=== PATIENT | female | born 1935 | race African-American/Black ===

== ENCOUNTER 2017-02-04 13:22 | Emergency (ER) | payer OTHER ==
[~2017-02-04] VITALS: Ht 154.9 cm; Wt 61.5 kg
[~2017-02-04 13:22] MED LIST: ALLO100T PO; COLC0.6T66 PO; DICL75TA5 PO; DILT120C2 PO
[2017-02-04 14:14] VITALS: BP 155/80
== END 2017-02-04 16:36 | disposition home or self-care (01) ==
LOC: ER 13:45
DX: H53.8 Other visual disturbances (principal); Z79.899 Other long term (current) drug therapy; I10 Essential (primary) hypertension; M10.9 Gout, unspecified; R51 Headache
CPT/HCPCS: 70450; 99284

== ENCOUNTER → 2018-05-20 | Outpatient (CLI) | payer MEDICARE ==
[~2018-05-20] MED LIST changes: +DILT-26 PO; -DILT120C2 PO
== END | disposition home or self-care (01) ==
LOC: MRI 12:07
PROVIDERS: ATTEND Internal Medicine Critical Care Medicine
DX: M19.042 Primary osteoarthritis, left hand (principal); M25.451 Effusion, right hip; D25.9 Leiomyoma of uterus, unspecified
CPT/HCPCS: 72195; 73130

== ENCOUNTER 2019-02-20 12:30 | Inpatient (IN) | payer OTHER, MEDICARE ==
[~2019-02-20] VITALS: Ht 154.9 cm; Wt 61.7 kg
[2019-02-20] MEDS ORDERED: SODIUM CHLORIDE 0.9% 1,000 ML IV ONE (17:21)
[2019-02-20] MEDS ORDERED: MORPHINE SULFATE 2 MG/ML CPJ (NOT FOR IM USE) IV ONE (17:30)
[2019-02-20 18:12] LABS: BASOPHILS % 0.9 % (0.0-2.0); EOSINOPHILS % 0.5 % (0.0-5.0); HEMATOCRIT. 30.8 % (36.0-48.0); LYMPHOCYTES % 11.7 % (20.0-50.0); MEAN CORPUSCULAR VOLUME 89.3 fL (81.0-99.0); MEAN PLATELET VOLUME 7.8 fl (7.4-10.4); MONOCYTES % 8.9 % (2.0-8.0); PLATELET 435 x1000/uL (130-400); RED BLOOD CELL COUNT 3.45 mill/uL (4.2-5.4); RED CELL DISTRIBUTION WIDTH 14.8 % (11.6-14.6)
[2019-02-20 18:17] LABS: CHLORIDE 109 mEq/L (98-107)
[2019-02-20 18:18] LABS: PROTHROMBIN TIME 10.2 sec (9.6-11.0)
[2019-02-20] MEDS ORDERED: LIDOCAINE 1%/EPI 1:100,000 10 ML VIAL IJ ONE (18:45)
[2019-02-20] MEDS ORDERED: LIDOCAINE HCL/EPINEPHRINE 1%-EPI 1:100,000 20 ML VIAL INFIL NR (19:15)
[2019-02-20] MEDS ORDERED: VANCOMYCIN 1 G PREMIX 200 ML IV ONE (19:15)
[2019-02-20] MEDS ORDERED: CEFTRIAXONE 1 G PREMIX 50 ML IV ONE (19:15)
[2019-02-20] MEDS ORDERED: DOCUSATE SODIUM 100MG CAPSULE PO PRN (19:45)
[2019-02-20] MEDS ORDERED: DIPHENHYDRAMINE 50MG/ML VIAL IV PRN (19:45)
[2019-02-20] MEDS ORDERED: ACETAMINOPHEN 325MG TABLET PO PRN (19:45)
[2019-02-20] MEDS ORDERED: MAGNESIUM/ALUMINUM HYDROXIDE/SIMETHICONE 30ML UDC PO PRN (19:45)
[2019-02-20] MEDS ORDERED: IPRATROPIUM/ALBUTEROL 0.5-3(2.5)MG/3ML NEB INH PRN (19:45)
[2019-02-20] MEDS ORDERED: PIPERACILLIN/TAZ 3.375G PREMIX 50 ML IV SCH (19:45)
[2019-02-20] MEDS ORDERED: CLONIDINE 0.1MG TABLET PO PRN (19:45)
[2019-02-20] MEDS ORDERED: ONDANSETRON HCL 4MG/2ML INJ IV PRN (19:45)
[2019-02-20] MEDS ORDERED: GUAIFENESIN 200MG/10ML SUGAR FREE UDC PO PRN (19:45)
[2019-02-20 20:16] LABS: PHOSPHORUS 4.8 mg/dL (2.5-4.9)
[2019-02-20 23:40] VITALS: BP 145/68
[2019-02-20 23:46] LABS: CLARITY URINE CLEAR (CLEAR); COLOR URINE YELLOW (YELLOW); KETONES URINE NEGATIVE (NEGATIVE); LEUKOCYTE ESTERASE URINE NEGATIVE (NEGATIVE); NITRITE URINE NEGATIVE (NEGATIVE); OCCULT BLOOD URINE 1+ (NEGATIVE); PH URINE 6.5 (4.5-8.0); PROTEIN URINE 2+ (NEGATIVE); SPECIFIC GRAVITY URINE 1.013 (1.005-1.030); UROBILINOGEN URINE 0.2 E.U./dL (0.2-1.0)
[2019-02-21] VITALS: BP 145/68
[2019-02-21] MEDS ORDERED: DEXTROSE 50% WATER 50ML SYRINGE IV NR
[2019-02-21] MEDS: MORPHINE SULFATE 2 MG/ML CPJ (NOT FOR IM USE) IV PRN (00:27)
[2019-02-21] MEDS ORDERED: DEXTROSE 50% WATER 50ML SYRINGE IV PRN ×2 (00:45→12:45)
[2019-02-21] MEDS ORDERED: ACET-2708 PO (00:47)
[2019-02-21] MEDS ORDERED: OLOP5DRO14 EACHEYE (00:47)
[2019-02-21] MEDS ORDERED: DORZ10DR12 EACHEYE (00:47)
[2019-02-21] MEDS ORDERED: XALAO EACHEYE (00:47)
[2019-02-21] MEDS ORDERED: CALC0.253 PO (00:47)
[2019-02-21] MEDS ORDERED: AMLO5TAB88 PO (00:47)
[2019-02-21] MEDS ORDERED: INSULIN REGULAR (HUMULIN R) 300UNITS/3ML SUBCUT NR (01:00)
[2019-02-21] MEDS ORDERED: SODIUM POLYSTYRENE SULFONATE 15 G/60 ML BOT PO NR (01:00)
[2019-02-21 01:07] LABS: CREATINE KINASE MB FRACTION 1.3 ng/mL (0.5-3.6)
[2019-02-21 04:00] VITALS: BP 130/68
[2019-02-21] MEDS ORDERED: PIPERACILLIN/TAZ 2.25G PREMIX 50 ML IV SCH (06:00)
[2019-02-21 07:15] LABS: CHLORIDE 113 mEq/L (98-107)
[2019-02-21 07:25] LABS: BASOPHILS % 0.3 % (0.0-2.0); EOSINOPHILS % 0.8 % (0.0-5.0); HEMATOCRIT. 28.7 % (36.0-48.0); HEMOGLOBIN. 9.3 g/dL (12.0-16.0); MEAN CORPUSCULAR HEMOGLOBIN 28.7 pg (28.0-32.0); MEAN CORPUSCULAR VOLUME 88.8 fL (81.0-99.0); MEAN PLATELET VOLUME 7.8 fl (7.4-10.4); MONOCYTES % 10.8 % (2.0-8.0); NEUTROPHILS % 78.1 % (40.0-76.0); PLATELET 456 x1000/uL (130-400); RED BLOOD CELL COUNT 3.24 mill/uL (4.2-5.4); RED CELL DISTRIBUTION WIDTH 14.4 % (11.6-14.6)
[2019-02-21 07:33] LABS: CREATINE KINASE 141 IU/L (26-192); LDL CHOLESTEROL 93 mg/dL (5-100)
[2019-02-21 07:36] LABS: HDL CHOLESTEROL 55 mg/dL (40-59)
[2019-02-21 07:37] LABS: CREATINE KINASE MB FRACTION 1.3 ng/mL (0.5-3.6)
[2019-02-21] MEDS ORDERED: BLOOD SUGAR DIAGNOSTIC STRIP TEST SCH (07:40)
[2019-02-21 08:00] VITALS: BP 147/70
[2019-02-21] MEDS ORDERED: INSULIN LISPRO 100 UNITS/ML SUBCUT SCH (08:10)
[2019-02-21] MEDS: DORZOLAM/TIMOLOL 2.23/0.68% OPHTH DROPS 10ML EACHEYE SCH ×2 (08:55→17:37)
[2019-02-21] MEDS: AMLODIPINE 5MG TABLET PO SCH (08:55)
[2019-02-21 12:00] VITALS: BP 128/67
[2019-02-21] MEDS: COLCHICINE 0.6MG TABLET PO SCH (13:03)
[2019-02-21] MEDS: INSULIN LISPRO 100 UNITS/ML SUBCUT SCH ×3 (13:04→22:11)
[2019-02-21] MEDS ORDERED: ALLOPURINOL 300 MG TABLET PO SCH (14:00)
[2019-02-21] MEDS ORDERED: VANCOMYCIN 500 MG PREMIX 100 ML IV NR (14:00)
[2019-02-21] MEDS ORDERED: FLUCONAZOLE 150MG TABLET PO SCH (14:00)
[2019-02-21] MEDS: CALCITRIOL 0.25MCG CAPSULE PO SCH (15:16)
[2019-02-21 16:00] VITALS: BP 134/62
[2019-02-21] MEDS: BLOOD SUGAR DIAGNOSTIC STRIP TEST SCH ×2 (17:35→21:53)
[2019-02-21] MEDS: HYDROCODONE/ACETAMINOPHEN 5/325MG TABLET PO PRN (17:37)
[2019-02-21 20:00] VITALS: BP 119/57
[2019-02-21] MEDS: LATANOPROST 0.005% OPHTH DROPS 2.5ML EACHEYE SCH (21:53)
[2019-02-21] MEDS: FAMOTIDINE 20MG TABLET PO SCH (21:53)
[2019-02-22] VITALS: BP_SYST 108; BP_DIAS 52; BP_DIAS 56
[2019-02-22 04:00] VITALS: BP 128/68
[2019-02-22] MEDS: HYDROCODONE/ACETAMINOPHEN 5/325MG TABLET PO PRN (06:13)
[2019-02-22] MEDS: BLOOD SUGAR DIAGNOSTIC STRIP TEST SCH (06:18)
[2019-02-22] MEDS: INSULIN LISPRO 100 UNITS/ML SUBCUT SCH (06:18)
[2019-02-22 08:00] VITALS: BP 121/80
[2019-02-22] MEDS: AMLODIPINE 5MG TABLET PO SCH (09:12)
[2019-02-22] MEDS: CALCITRIOL 0.25MCG CAPSULE PO SCH (09:12)
[2019-02-22] MEDS: DORZOLAM/TIMOLOL 2.23/0.68% OPHTH DROPS 10ML EACHEYE SCH ×2 (09:13→18:15)
[2019-02-22] MEDS: LIDOCAINE 5% PATCH TOP SCH (09:56)
[2019-02-22] MEDS: COLCHICINE 0.6MG TABLET PO SCH (10:07)
[2019-02-22 12:00] VITALS: BP 135/67
[2019-02-22 16:00] VITALS: BP 129/69
[2019-02-22 20:00] VITALS: BP 149/67
[2019-02-22] MEDS: FAMOTIDINE 20MG TABLET PO SCH (20:41)
[2019-02-22] MEDS: LATANOPROST 0.005% OPHTH DROPS 2.5ML EACHEYE SCH (20:41)
[2019-02-22] MEDS: MORPHINE SULFATE 2 MG/ML CPJ (NOT FOR IM USE) IV PRN (20:42)
[2019-02-23] VITALS: BP 123/70
[2019-02-23 04:00] VITALS: BP 129/65
[2019-02-23 07:00] LABS: BASOPHILS % 0.6 % (0.0-2.0); EOSINOPHILS % 1.1 % (0.0-5.0); HEMATOCRIT. 27.2 % (36.0-48.0); HEMOGLOBIN. 8.8 g/dL (12.0-16.0); LYMPHOCYTES % 11.7 % (20.0-50.0); MEAN CORPUSCULAR HEMOGLOBIN 28.6 pg (28.0-32.0); MEAN CORPUSCULAR VOLUME 88.4 fL (81.0-99.0); MEAN PLATELET VOLUME 7.5 fl (7.4-10.4); MONOCYTES % 9.5 % (2.0-8.0); NEUTROPHILS % 77.1 % (40.0-76.0); PLATELET 431 x1000/uL (130-400); RED BLOOD CELL COUNT 3.08 mill/uL (4.2-5.4); RED CELL DISTRIBUTION WIDTH 14.3 % (11.6-14.6)
[2019-02-23 07:13] LABS: PHOSPHORUS 4.7 mg/dL (2.5-4.9)
[2019-02-23 08:00] VITALS: BP 136/71
[2019-02-23] MEDS ORDERED: TRIAMCINOLONE ACETONIDE 40MG/ML 1ML VIAL IM NR (08:00)
[2019-02-23] MEDS ORDERED: ETHYL CHLORIDE CAN TOP NR (08:00)
[2019-02-23] MEDS ORDERED: BUPIVACAINE HCL 0.25% (2.5MG/ML) 50ML IR NR (08:00)
[2019-02-23] MEDS ORDERED: LIDOCAINE HCL 1% 20ML VIAL (Pyxis) INJ INFIL NR (08:00)
[2019-02-23] MEDS: COLCHICINE 0.6MG TABLET PO SCH (08:38)
[2019-02-23] MEDS: CALCITRIOL 0.25MCG CAPSULE PO SCH (08:39)
[2019-02-23] MEDS: AMLODIPINE 5MG TABLET PO SCH (08:39)
[2019-02-23] MEDS: DORZOLAM/TIMOLOL 2.23/0.68% OPHTH DROPS 10ML EACHEYE SCH ×2 (08:40→17:00)
[2019-02-23] MEDS: LIDOCAINE 5% PATCH TOP SCH (08:40)
[2019-02-23 09:15] LABS: TOTAL IRON BINDING CAPACITY 240 ug/dL (250-450)
[2019-02-23 12:00] VITALS: BP 141/62
[2019-02-23 16:00] VITALS: BP 125/63
[2019-02-23 20:00] VITALS: BP 141/63
[2019-02-23] MEDS ORDERED: POLYETHYLENE GLYCOL 3350 (17GM) 1 DOSE PACK PO SCH (21:00)
[2019-02-23] MEDS: LATANOPROST 0.005% OPHTH DROPS 2.5ML EACHEYE SCH (21:21)
[2019-02-23] MEDS: LACTULOSE 20G/30ML UDC PO SCH (21:22)
[2019-02-23] MEDS: DOCUSATE SODIUM 100MG CAPSULE PO SCH (21:22)
[2019-02-23] MEDS: FAMOTIDINE 20MG TABLET PO SCH (21:23)
[2019-02-24 00:39] VITALS: BP 128/71
[2019-02-24 04:00] VITALS: BP_SYST 133
[2019-02-24 06:04] LABS: BASOPHILS % 0.5 % (0.0-2.0); EOSINOPHILS % 0.2 % (0.0-5.0); HEMOGLOBIN. 8.9 g/dL (12.0-16.0); LYMPHOCYTES % 10.2 % (20.0-50.0); MEAN CORPUSCULAR HEMOGLOBIN 28.4 pg (28.0-32.0); MEAN CORPUSCULAR VOLUME 89.9 fL (81.0-99.0); MEAN PLATELET VOLUME 7.4 fl (7.4-10.4); MONOCYTES % 6.8 % (2.0-8.0); NEUTROPHILS % 82.3 % (40.0-76.0); PLATELET 446 x1000/uL (130-400); RED BLOOD CELL COUNT 3.12 mill/uL (4.2-5.4); RED CELL DISTRIBUTION WIDTH 14.3 % (11.6-14.6)
[2019-02-24 08:00] VITALS: BP 163/58
[2019-02-24] MEDS: CALCITRIOL 0.25MCG CAPSULE PO SCH (08:58)
[2019-02-24] MEDS: FAMOTIDINE 20MG TABLET PO SCH (08:58)
[2019-02-24] MEDS: AMLODIPINE 5MG TABLET PO SCH (08:58)
[2019-02-24] MEDS: LACTULOSE 20G/30ML UDC PO SCH (08:59)
[2019-02-24] MEDS: LIDOCAINE 5% PATCH TOP SCH (08:59)
[2019-02-24] MEDS: DOCUSATE SODIUM 100MG CAPSULE PO SCH (09:00)
[2019-02-24] MEDS: COLCHICINE 0.6MG TABLET PO SCH (09:01)
[2019-02-24] MEDS: DORZOLAM/TIMOLOL 2.23/0.68% OPHTH DROPS 10ML EACHEYE SCH (09:05)
[2019-02-24] MEDS ORDERED: IRON SUCROSE COMPLEX 100 MG/5 ML ML IV SCH (09:30)
[2019-02-24] MEDS ORDERED: SODIUM BICARBONATE 650 MG TABLET PO SCH (09:30)
[2019-02-24 12:00] VITALS: BP 105/53
[2019-02-24 15:10] VITALS: BP 105/53
[2019-02-24] MEDS ORDERED: AMLODIPINE 5MG TABLET PO SCH (21:00)
== END 2019-02-24 16:03 | DRG 554 ==
LOC: ER 12:30 → 7WST 19:17 → EDBEDREQTM 19:34 → EDBEDREQ 19:34 → ENRESERV 20:45
PROVIDERS: ADMIT Internal Medicine; ATTEND Internal Medicine
PROC: 0S9D3ZZ Drainage of Left Knee Joint, Percutaneous Approach (ICD-10-PCS; principal; 2019-02-20)
PROC: 3E0U33Z Introduction of Anti-inflammatory into Joints, Percutaneous Approach (ICD-10-PCS; 2019-02-23)
PROC: 3E0U3BZ Introduction of Anesthetic Agent into Joints, Percutaneous Approach (ICD-10-PCS; 2019-02-23)
DX: M17.12 Unilateral primary osteoarthritis, left knee (principal); N17.9 Acute kidney failure, unspecified; R65.10 Systemic inflammatory response syndrome (SIRS) of non-infectious origin without acute organ dysfunction; I12.0 Hypertensive chronic kidney disease with stage 5 chronic kidney disease or end stage renal disease; N18.5 Chronic kidney disease, stage 5; E87.5 Hyperkalemia; E16.2 Hypoglycemia, unspecified; M10.9 Gout, unspecified; D63.1 Anemia in chronic kidney disease; E78.00 Pure hypercholesterolemia, unspecified; E78.5 Hyperlipidemia, unspecified; G62.9 Polyneuropathy, unspecified; G89.29 Other chronic pain; H40.9 Unspecified glaucoma; H54.7 Unspecified visual loss; K21.9 Gastro-esophageal reflux disease without esophagitis; M48.02 Spinal stenosis, cervical region; M71.22 Synovial cyst of popliteal space [Baker], left knee; M48.061 Spinal stenosis, lumbar region without neurogenic claudication; M50.321 Other cervical disc degeneration at C4-C5 level; M51.36 Other intervertebral disc degeneration, lumbar region; M85.80 Other specified disorders of bone density and structure, unspecified site; Z82.3 Family history of stroke; Z82.49 Family history of ischemic heart disease and other diseases of the circulatory system; Z86.010 Personal history of colon polyps; Z98.42 Cataract extraction status, left eye; Z79.899 Other long term (current) drug therapy
CPT/HCPCS: 36415; 70551; 71045; 72141; 72146; 72148; 72190; 73562; 80048; 80061; 82550; 82553; 82962; 83036; 83540; 83550; 83605; 83735; 83880; 84100; 84443; 84550; 85651; 86140; 89060; 93005; 93970; 96374; 97110; 97162; 97166; 97530; 97535; 99285; J0696; J1815; J2270; J2543; J3301; J3370; J3490; J7030; J7050

== ENCOUNTER 2019-02-24 15:55 | Inpatient (IN) | payer MEDICARE ==
[~2019-02-24] VITALS: Ht 154.9 cm; Wt 61.7 kg
[~2019-02-24 15:55] MED LIST changes: +ACET-2708 PO; +AMLO5TAB88 PO; +CALC0.253 PO; -COLC0.6T66 PO; -DICL75TA5 PO; -DILT-26 PO; +DORZ10DR12 EACHEYE; +OLOP5DRO14 EACHEYE; +XALAO EACHEYE
[2019-02-24 16:00] VITALS: BP 114/69
[2019-02-24] MEDS ORDERED: MORPHINE SULFATE 2 MG/ML CPJ (NOT FOR IM USE) IV PRN (17:00)
[2019-02-24] MEDS ORDERED: DIPHENHYDRAMINE 25MG CAPSULE PO PRN (17:00)
[2019-02-24] MEDS ORDERED: MAGNESIUM/ALUMINUM HYDROXIDE/SIMETHICONE 30ML UDC PO PRN (17:00)
[2019-02-24] MEDS ORDERED: GUAIFENESIN 200MG/10ML SUGAR FREE UDC PO PRN (17:00)
[2019-02-24] MEDS ORDERED: CLONIDINE 0.1MG TABLET PO PRN (17:00)
[2019-02-24] MEDS ORDERED: ACETAMINOPHEN 325MG TABLET PO PRN (17:00)
[2019-02-24] MEDS ORDERED: IPRATROPIUM/ALBUTEROL 0.5-3(2.5)MG/3ML NEB HHN PRN (17:00)
[2019-02-24] MEDS: DOCUSATE SODIUM 100MG CAPSULE PO SCH (17:00)
[2019-02-24 20:00] VITALS: BP 117/56
[2019-02-24] MEDS: POLYETHYLENE GLYCOL 3350 (17GM) 1 DOSE PACK PO SCH (21:00)
[2019-02-24] MEDS: AMLODIPINE 5MG TABLET PO SCH (21:05)
[2019-02-24] MEDS: DORZOLAM/TIMOLOL 2.23/0.68% OPHTH DROPS 10ML EACHEYE SCH (21:06)
[2019-02-24] MEDS: LATANOPROST 0.005% OPHTH DROPS 2.5ML EACHEYE SCH (21:48)
[2019-02-25 06:49] LABS: CHLORIDE 108 mEq/L (98-107)
[2019-02-25 06:54] LABS: BASOPHILS % 0.4 % (0.0-2.0); EOSINOPHILS % 1.7 % (0.0-5.0); HEMOGLOBIN. 8.9 g/dL (12.0-16.0); LYMPHOCYTES % 14.8 % (20.0-50.0); MEAN CORPUSCULAR HEMOGLOBIN 28.1 pg (28.0-32.0); MEAN CORPUSCULAR VOLUME 88.6 fL (81.0-99.0); MEAN PLATELET VOLUME 7.6 fl (7.4-10.4); MONOCYTES % 7.6 % (2.0-8.0); NEUTROPHILS % 75.5 % (40.0-76.0); PLATELET 487 x1000/uL (130-400); RED BLOOD CELL COUNT 3.16 mill/uL (4.2-5.4); RED CELL DISTRIBUTION WIDTH 14.5 % (11.6-14.6)
[2019-02-25 08:12] VITALS: BP 121/61
[2019-02-25] MEDS: AMLODIPINE 5MG TABLET PO SCH ×2 (09:00→20:36)
[2019-02-25] MEDS: DOCUSATE SODIUM 100MG CAPSULE PO SCH ×2 (10:12→17:43)
[2019-02-25] MEDS: CALCITRIOL 0.25MCG CAPSULE PO SCH (10:12)
[2019-02-25] MEDS: COLCHICINE 0.6MG TABLET PO SCH (10:12)
[2019-02-25] MEDS: SODIUM BICARBONATE 650 MG TABLET PO SCH (10:13)
[2019-02-25] MEDS: LIDOCAINE 5% PATCH TOP SCH (10:13)
[2019-02-25] MEDS: DORZOLAM/TIMOLOL 2.23/0.68% OPHTH DROPS 10ML EACHEYE SCH ×2 (10:15→17:44)
[2019-02-25] MEDS: HYDROCODONE/ACETAMINOPHEN 5/325MG TABLET PO PRN (11:23)
[2019-02-25 19:49] LABS: CLARITY URINE CLEAR (CLEAR); COLOR URINE YELLOW (YELLOW); KETONES URINE NEGATIVE (NEGATIVE); LEUKOCYTE ESTERASE URINE NEGATIVE (NEGATIVE); NITRITE URINE NEGATIVE (NEGATIVE); OCCULT BLOOD URINE TRACE (NEGATIVE); PH URINE 5.5 (4.5-8.0); PROTEIN URINE 1+ (NEGATIVE); SPECIFIC GRAVITY URINE 1.014 (1.005-1.030); UROBILINOGEN URINE 0.2 E.U./dL (0.2-1.0)
[2019-02-25 20:00] VITALS: BP 132/67
[2019-02-25] MEDS: POLYETHYLENE GLYCOL 3350 (17GM) 1 DOSE PACK PO SCH (20:36)
[2019-02-25] MEDS: FAMOTIDINE 20MG TABLET PO SCH (20:36)
[2019-02-25] MEDS: LATANOPROST 0.005% OPHTH DROPS 2.5ML EACHEYE SCH (20:37)
[2019-02-26 06:49] LABS: BASOPHILS % 0.7 % (0.0-2.0); EOSINOPHILS % 2.4 % (0.0-5.0); HEMATOCRIT. 28.5 % (36.0-48.0); HEMOGLOBIN. 9.2 g/dL (12.0-16.0); LYMPHOCYTES % 16.7 % (20.0-50.0); MEAN CORPUSCULAR HEMOGLOBIN 28.7 pg (28.0-32.0); MEAN CORPUSCULAR VOLUME 88.7 fL (81.0-99.0); MEAN PLATELET VOLUME 7.7 fl (7.4-10.4); MONOCYTES % 8.5 % (2.0-8.0); NEUTROPHILS % 71.7 % (40.0-76.0); PLATELET 519 x1000/uL (130-400); RED BLOOD CELL COUNT 3.21 mill/uL (4.2-5.4); RED CELL DISTRIBUTION WIDTH 14.5 % (11.6-14.6)
[2019-02-26 07:27] LABS: PHOSPHORUS 4.9 mg/dL (2.5-4.9)
[2019-02-26 07:49] VITALS: BP 115/54
[2019-02-26] MEDS ORDERED: LACTULOSE 20G/30ML UDC PO SCH ×2 (09:00→14:00)
[2019-02-26] MEDS: SODIUM BICARBONATE 650 MG TABLET PO SCH (09:49)
[2019-02-26] MEDS: DOCUSATE SODIUM 100MG CAPSULE PO SCH ×2 (09:49→16:43)
[2019-02-26] MEDS: AMLODIPINE 5MG TABLET PO SCH ×2 (09:49→22:05)
[2019-02-26] MEDS: CALCITRIOL 0.25MCG CAPSULE PO SCH (09:49)
[2019-02-26] MEDS: COLCHICINE 0.6MG TABLET PO SCH (09:49)
[2019-02-26] MEDS: DORZOLAM/TIMOLOL 2.23/0.68% OPHTH DROPS 10ML EACHEYE SCH ×2 (10:03→16:44)
[2019-02-26] MEDS: LIDOCAINE 5% PATCH TOP SCH (10:03)
[2019-02-26] MEDS: HEPARIN 5000 UNITS/ML VIAL SUBCUT SCH ×2 (10:49→21:59)
[2019-02-26 11:08] LABS: FOLIC ACID (FOLATE) SERUM 10.5 ng/mL (>5.38)
[2019-02-26 20:00] VITALS: BP_SYST 139; BP_SYST 149; BP_DIAS 63; BP_DIAS 79
[2019-02-26] MEDS: FAMOTIDINE 20MG TABLET PO SCH (21:59)
[2019-02-26] MEDS: POLYETHYLENE GLYCOL 3350 (17GM) 1 DOSE PACK PO SCH (22:00)
[2019-02-26] MEDS: LATANOPROST 0.005% OPHTH DROPS 2.5ML EACHEYE SCH (22:05)
[2019-02-27] MEDS: DORZOLAM/TIMOLOL 2.23/0.68% OPHTH DROPS 10ML EACHEYE SCH ×2 (08:19→17:28)
[2019-02-27] MEDS: COLCHICINE 0.6MG TABLET PO SCH (08:19)
[2019-02-27] MEDS: CALCITRIOL 0.25MCG CAPSULE PO SCH (08:19)
[2019-02-27] MEDS: SODIUM BICARBONATE 650 MG TABLET PO SCH (08:19)
[2019-02-27] MEDS: AMLODIPINE 5MG TABLET PO SCH ×2 (08:20→21:55)
[2019-02-27] MEDS: DOCUSATE SODIUM 100MG CAPSULE PO SCH ×2 (08:20→17:28)
[2019-02-27] MEDS: HEPARIN 5000 UNITS/ML VIAL SUBCUT SCH ×2 (08:21→21:56)
[2019-02-27] MEDS: LIDOCAINE 5% PATCH TOP SCH (08:22)
[2019-02-27 08:32] VITALS: BP 126/58
[2019-02-27] MEDS: HYDROCODONE/ACETAMINOPHEN 5/325MG TABLET PO PRN (10:18)
[2019-02-27] MEDS ORDERED: LEVOFLOXACIN 500MG TABLET PO SCH (11:00)
[2019-02-27] MEDS: CYANOCOBALAMIN 1000MCG/ML VIAL IM SCH (11:50)
[2019-02-27] MEDS: ONDANSETRON 4MG ODT PO PRN (15:53)
[2019-02-27 20:00] VITALS: BP 138/60
[2019-02-27] MEDS: POLYETHYLENE GLYCOL 3350 (17GM) 1 DOSE PACK PO SCH (21:00)
[2019-02-27] MEDS: LATANOPROST 0.005% OPHTH DROPS 2.5ML EACHEYE SCH (21:54)
[2019-02-27] MEDS: FAMOTIDINE 20MG TABLET PO SCH (21:55)
[2019-02-28 06:29] LABS: BASOPHILS % 0.8 % (0.0-2.0); EOSINOPHILS % 0.7 % (0.0-5.0); HEMATOCRIT. 27.3 % (36.0-48.0); HEMOGLOBIN. 8.9 g/dL (12.0-16.0); LYMPHOCYTES % 17.8 % (20.0-50.0); MEAN CORPUSCULAR HEMOGLOBIN 28.6 pg (28.0-32.0); MEAN CORPUSCULAR VOLUME 88.1 fL (81.0-99.0); MEAN PLATELET VOLUME 7.8 fl (7.4-10.4); MONOCYTES % 8.5 % (2.0-8.0); NEUTROPHILS % 72.2 % (40.0-76.0); PLATELET 484 x1000/uL (130-400); RED CELL DISTRIBUTION WIDTH 14.4 % (11.6-14.6)
[2019-02-28 08:00] VITALS: BP 136/71
[2019-02-28] MEDS: SODIUM BICARBONATE 650 MG TABLET PO SCH ×2 (08:54→16:31)
[2019-02-28] MEDS: COLCHICINE 0.6MG TABLET PO SCH (08:54)
[2019-02-28] MEDS: CALCITRIOL 0.25MCG CAPSULE PO SCH (08:55)
[2019-02-28] MEDS: HEPARIN 5000 UNITS/ML VIAL SUBCUT SCH ×2 (08:55→20:45)
[2019-02-28] MEDS: CYANOCOBALAMIN 1000MCG/ML VIAL IM SCH (08:55)
[2019-02-28] MEDS: DOCUSATE SODIUM 100MG CAPSULE PO SCH ×2 (08:56→16:31)
[2019-02-28] MEDS: DORZOLAM/TIMOLOL 2.23/0.68% OPHTH DROPS 10ML EACHEYE SCH ×2 (08:56→16:31)
[2019-02-28] MEDS: AMLODIPINE 5MG TABLET PO SCH ×2 (08:56→20:37)
[2019-02-28] MEDS: LIDOCAINE 5% PATCH TOP SCH (08:57)
[2019-02-28] MEDS: HYDROCODONE/ACETAMINOPHEN 5/325MG TABLET PO PRN (10:20)
[2019-02-28] MEDS: ONDANSETRON 4MG ODT PO PRN (15:15)
[2019-02-28 20:00] VITALS: BP 124/64
[2019-02-28] MEDS: POLYETHYLENE GLYCOL 3350 (17GM) 1 DOSE PACK PO SCH (20:37)
[2019-02-28] MEDS: LATANOPROST 0.005% OPHTH DROPS 2.5ML EACHEYE SCH (20:37)
[2019-02-28] MEDS: FAMOTIDINE 20MG TABLET PO SCH (20:37)
[2019-02-28 20:48] VITALS: BP 124/64
[2019-02-28] MEDS: IRON SUCROSE COMPLEX 200 MG in SODIUM CHLORIDE 0.9% 100 ML IV SCH (23:31)
[2019-03-01] MEDS: HYDROCODONE/ACETAMINOPHEN 5/325MG TABLET PO PRN (06:46)
[2019-03-01 07:08] LABS: HEMATOCRIT. 29.1 % (36.0-48.0); HEMOGLOBIN. 9.6 g/dL (12.0-16.0); MEAN CORPUSCULAR HEMOGLOBIN 29.2 pg (28.0-32.0); MEAN CORPUSCULAR VOLUME 88.9 fL (81.0-99.0); MEAN PLATELET VOLUME 7.9 fl (7.4-10.4); PLATELET 507 x1000/uL (130-400); RED BLOOD CELL COUNT 3.28 mill/uL (4.2-5.4); RED CELL DISTRIBUTION WIDTH 14.7 % (11.6-14.6)
[2019-03-01 08:17] VITALS: BP 134/71
[2019-03-01] MEDS: SODIUM BICARBONATE 650 MG TABLET PO SCH ×2 (09:48→17:35)
[2019-03-01] MEDS: AMLODIPINE 5MG TABLET PO SCH ×2 (09:48→20:32)
[2019-03-01] MEDS: COLCHICINE 0.6MG TABLET PO SCH (09:48)
[2019-03-01] MEDS: DOCUSATE SODIUM 100MG CAPSULE PO SCH ×2 (09:48→17:00)
[2019-03-01] MEDS: ALLOPURINOL 100 MG TABLET PO SCH (09:49)
[2019-03-01] MEDS: DORZOLAM/TIMOLOL 2.23/0.68% OPHTH DROPS 10ML EACHEYE SCH ×2 (09:49→17:35)
[2019-03-01] MEDS: CALCITRIOL 0.25MCG CAPSULE PO SCH (09:49)
[2019-03-01] MEDS: LIDOCAINE 5% PATCH TOP SCH (09:54)
[2019-03-01] MEDS: HEPARIN 5000 UNITS/ML VIAL SUBCUT SCH ×2 (09:55→20:32)
[2019-03-01] MEDS: ONDANSETRON 4MG ODT PO PRN (09:57)
[2019-03-01] MEDS ORDERED: MAGNESIUM CITRATE 300ML SOLUTION PO NR (10:00)
[2019-03-01] MEDS: CYANOCOBALAMIN 1000MCG/ML VIAL IM SCH (10:06)
[2019-03-01] MEDS ORDERED: LEVOFLOXACIN 250MG TABLET PO SCH ×3 (11:00)
[2019-03-01 16:32] LABS: PLATELET ESTIMATE INCREASED
[2019-03-01 20:00] VITALS: BP 114/51
[2019-03-01] MEDS: IRON SUCROSE COMPLEX 200 MG in SODIUM CHLORIDE 0.9% 100 ML IV SCH (20:31)
[2019-03-01] MEDS: LATANOPROST 0.005% OPHTH DROPS 2.5ML EACHEYE SCH (20:32)
[2019-03-01] MEDS: FAMOTIDINE 20MG TABLET PO SCH (20:32)
[2019-03-01] MEDS: POLYETHYLENE GLYCOL 3350 (17GM) 1 DOSE PACK PO SCH (20:40)
[2019-03-02 07:18] LABS: BASOPHILS % 1.3 % (0.0-2.0); EOSINOPHILS % 0.8 % (0.0-5.0); HEMATOCRIT. 28.6 % (36.0-48.0); HEMOGLOBIN. 9.4 g/dL (12.0-16.0); LYMPHOCYTES % 19.1 % (20.0-50.0); MEAN CORPUSCULAR VOLUME 88.1 fL (81.0-99.0); MONOCYTES % 9.6 % (2.0-8.0); NEUTROPHILS % 69.2 % (40.0-76.0); PLATELET 494 x1000/uL (130-400); RED BLOOD CELL COUNT 3.24 mill/uL (4.2-5.4); RED CELL DISTRIBUTION WIDTH 14.3 % (11.6-14.6)
[2019-03-02 08:04] VITALS: BP 127/67
[2019-03-02] MEDS: AMLODIPINE 5MG TABLET PO SCH ×2 (09:00→21:00)
[2019-03-02 09:10] LABS: 25-HYDROXY VITAMIN D3 17 ng/mL (.)
[2019-03-02] MEDS: HYDROCODONE/ACETAMINOPHEN 5/325MG TABLET PO PRN (09:17)
[2019-03-02] MEDS: ONDANSETRON 4MG ODT PO PRN (09:17)
[2019-03-02] MEDS: DORZOLAM/TIMOLOL 2.23/0.68% OPHTH DROPS 10ML EACHEYE SCH ×2 (10:04→17:08)
[2019-03-02] MEDS: DOCUSATE SODIUM 100MG CAPSULE PO SCH ×2 (10:04→17:08)
[2019-03-02] MEDS: CALCITRIOL 0.25MCG CAPSULE PO SCH (10:04)
[2019-03-02] MEDS: ALLOPURINOL 100 MG TABLET PO SCH (10:04)
[2019-03-02] MEDS: SODIUM BICARBONATE 650 MG TABLET PO SCH ×2 (10:04→17:08)
[2019-03-02] MEDS: CYANOCOBALAMIN 1000MCG/ML VIAL IM SCH (10:05)
[2019-03-02] MEDS: HEPARIN 5000 UNITS/ML VIAL SUBCUT SCH ×2 (10:05→22:20)
[2019-03-02] MEDS: LIDOCAINE 5% PATCH TOP SCH (10:06)
[2019-03-02] MEDS: COLCHICINE 0.6MG TABLET PO SCH (10:17)
[2019-03-02 20:00] VITALS: BP 120/57
[2019-03-02] MEDS: POLYETHYLENE GLYCOL 3350 (17GM) 1 DOSE PACK PO SCH (21:00)
[2019-03-02] MEDS: FAMOTIDINE 20MG TABLET PO SCH (22:18)
[2019-03-02] MEDS: IRON SUCROSE COMPLEX 200 MG in SODIUM CHLORIDE 0.9% 100 ML IV SCH (22:18)
[2019-03-02] MEDS: LATANOPROST 0.005% OPHTH DROPS 2.5ML EACHEYE SCH (22:18)
[2019-03-03 08:00] VITALS: BP 141/73
[2019-03-03] MEDS: SODIUM BICARBONATE 650 MG TABLET PO SCH ×2 (08:28→17:12)
[2019-03-03] MEDS: HEPARIN 5000 UNITS/ML VIAL SUBCUT SCH ×2 (08:29→21:43)
[2019-03-03] MEDS: CYANOCOBALAMIN 1000MCG/ML VIAL IM SCH (08:29)
[2019-03-03] MEDS: CALCITRIOL 0.25MCG CAPSULE PO SCH (08:29)
[2019-03-03] MEDS: COLCHICINE 0.6MG TABLET PO SCH (08:29)
[2019-03-03] MEDS: ALLOPURINOL 100 MG TABLET PO SCH (08:29)
[2019-03-03] MEDS: DOCUSATE SODIUM 100MG CAPSULE PO SCH ×2 (08:29→17:12)
[2019-03-03] MEDS: HYDROCODONE/ACETAMINOPHEN 5/325MG TABLET PO PRN (08:32)
[2019-03-03] MEDS: LIDOCAINE 5% PATCH TOP SCH (08:33)
[2019-03-03] MEDS: DORZOLAM/TIMOLOL 2.23/0.68% OPHTH DROPS 10ML EACHEYE SCH ×2 (08:34→17:13)
[2019-03-03 20:00] VITALS: BP 128/59
[2019-03-03] MEDS: POLYETHYLENE GLYCOL 3350 (17GM) 1 DOSE PACK PO SCH (21:00)
[2019-03-03] MEDS: AMLODIPINE 5MG TABLET PO SCH (21:00)
[2019-03-03] MEDS: LATANOPROST 0.005% OPHTH DROPS 2.5ML EACHEYE SCH (21:41)
[2019-03-03] MEDS: FAMOTIDINE 20MG TABLET PO SCH (21:42)
[2019-03-04 08:31] VITALS: BP 141/63
[2019-03-04] MEDS: DOCUSATE SODIUM 100MG CAPSULE PO SCH (08:59)
[2019-03-04] MEDS: SODIUM BICARBONATE 650 MG TABLET PO SCH (08:59)
[2019-03-04] MEDS: DORZOLAM/TIMOLOL 2.23/0.68% OPHTH DROPS 10ML EACHEYE SCH (08:59)
[2019-03-04] MEDS: COLCHICINE 0.6MG TABLET PO SCH (08:59)
[2019-03-04] MEDS: CALCITRIOL 0.25MCG CAPSULE PO SCH (08:59)
[2019-03-04] MEDS: ALLOPURINOL 100 MG TABLET PO SCH (08:59)
[2019-03-04] MEDS: HEPARIN 5000 UNITS/ML VIAL SUBCUT SCH (09:03)
[2019-03-04] MEDS: LIDOCAINE 5% PATCH TOP SCH (09:05)
[2019-03-04] MEDS: HYDROCODONE/ACETAMINOPHEN 5/325MG TABLET PO PRN (09:50)
[2019-03-04] MEDS: ONDANSETRON 4MG ODT PO PRN (09:56)
[2019-03-04 13:06] VITALS: BP 129/68
== END 2019-03-04 15:35 | disposition home health service (06) | DRG 554 ==
PROVIDERS: ADMIT Physical Medicine & Rehabilitation Spinal Cord Injury Medicine; ATTEND Internal Medicine
DX: M10.062 Idiopathic gout, left knee (principal); N17.9 Acute kidney failure, unspecified; N18.5 Chronic kidney disease, stage 5; I12.0 Hypertensive chronic kidney disease with stage 5 chronic kidney disease or end stage renal disease; N39.0 Urinary tract infection, site not specified; N25.81 Secondary hyperparathyroidism of renal origin; E87.2 Acidosis; M48.02 Spinal stenosis, cervical region; M48.061 Spinal stenosis, lumbar region without neurogenic claudication; D63.8 Anemia in other chronic diseases classified elsewhere; M17.12 Unilateral primary osteoarthritis, left knee; E78.00 Pure hypercholesterolemia, unspecified; E78.5 Hyperlipidemia, unspecified; G62.9 Polyneuropathy, unspecified; G89.29 Other chronic pain; H40.9 Unspecified glaucoma; D50.9 Iron deficiency anemia, unspecified; R53.81 Other malaise; M54.5 Low back pain; B96.5 Pseudomonas (aeruginosa) (mallei) (pseudomallei) as the cause of diseases classified elsewhere; K21.9 Gastro-esophageal reflux disease without esophagitis; E16.2 Hypoglycemia, unspecified; R70.0 Elevated erythrocyte sedimentation rate; E55.9 Vitamin D deficiency, unspecified; F32.9 Major depressive disorder, single episode, unspecified; F41.9 Anxiety disorder, unspecified; K59.00 Constipation, unspecified; Z91.81 History of falling; Z86.010 Personal history of colon polyps
CPT/HCPCS: 36415; 73560; 80048; 82270; 82306; 82607; 82728; 82746; 83540; 83550; 83735; 84100; 84134; 84443; 87077; 87186; 93970; 97110; 97116; 97162; 97166; 97530; 97535; C1893; J1644; J2270; J3420; J7040; J7050; Q0162

== ENCOUNTER → 2021-10-21 | Outpatient (CLI) | payer MEDICARE, OTHER ==
[2021-10-21 16:33] LABS: BASOPHILS % 0.6 % (0.0-2.0); EOSINOPHILS % 3.1 % (0.0-5.0); HEMATOCRIT. 29.2 % (36.0-48.0); HEMOGLOBIN. 9.2 g/dL (12.0-16.0); LYMPHOCYTES % 20.2 % (20.0-50.0); MEAN CORPUSCULAR HEMOGLOBIN 27.4 pg (28.0-32.0); MEAN CORPUSCULAR VOLUME 86.4 fL (81.0-99.0); MEAN PLATELET VOLUME 7.1 fl (7.4-10.4); MONOCYTES % 8.8 % (2.0-8.0); NEUTROPHILS % 67.3 % (40.0-76.0); PLATELET 335 x1000/uL (130-400); RED BLOOD CELL COUNT 3.38 mill/uL (4.2-5.4); RED CELL DISTRIBUTION WIDTH 16.2 % (11.6-14.6)
[2021-10-21 16:40] LABS: CHLORIDE 110 mEq/L (98-107)
[2021-10-21 16:46] LABS: PHOSPHORUS 3.7 mg/dL (2.5-4.9)
== END | disposition home or self-care (01) ==
LOC: LAB 15:40
PROVIDERS: ATTEND Internal Medicine Nephrology
DX: I12.0 Hypertensive chronic kidney disease with stage 5 chronic kidney disease or end stage renal disease (principal); N18.5 Chronic kidney disease, stage 5; E87.5 Hyperkalemia
CPT/HCPCS: 36415; 80053; 84100; 85025